=== PATIENT | male | born 1970 | race Caucasian/White ===

== ENCOUNTER 2018-12-30 18:15 | Inpatient (IN) ==
[2018-12-30] MEDS ORDERED: Acetaminophen 325 MG TABLET PO PRN (18:44)
[2018-12-30] MEDS ORDERED: Ondansetron ODT 4 MG TAB.RAPDIS SL PRN (18:50)
[2018-12-30] MEDS: valACYclovir 500 MG TABLET PO SCH (22:56)
[2018-12-30] MEDS: Gabapentin 300 MG CAPSULE PO SCH (22:56)
[2018-12-30] MEDS: Sennosides/Docusate Sodium TABLET PO SCH (23:00)
[2018-12-30] MEDS: *HR* OxyCODONE Immed Rel 5 MG TABLET PO PRN (23:19)
[2018-12-31] MEDS ORDERED: *HR* Enoxaparin 40 MG/0.4 ML SYRINGE SQ SCH (06:00)
[2018-12-31] MEDS: *HR* OxyCODONE Immed Rel 5 MG TABLET PO PRN ×2 (08:18→13:58)
[2018-12-31] MEDS: Sennosides/Docusate Sodium TABLET PO SCH ×2 (08:18→10:15)
[2018-12-31] MEDS: valACYclovir 500 MG TABLET PO SCH (08:21)
[2018-12-31] MEDS: Gabapentin 300 MG CAPSULE PO SCH (08:21)
[2018-12-31 08:41] VITALS: BP 117/75
--- NOTE | 2018-12-31 12:04 | Internal Med History&Physical ---
Date of Encounter: 12/31/18 Time of Encounter: 12:00 Assessment and Plan (1) Closed avulsion fracture of right hip Current visit: Yes Status: Acute Patient has experienced a avulsion fracture of the right hip when he fell down a flight of steps approximately 2 weeks ago. It was determined to take a nonsurgical route of treatment for his fracture. Patient was treated at an [facility] for this fracture and multiple other injuries and eventually discharged to our facility for further rehabilitation due to generalized weakness and poor pain control. Patient reportedly was unable to get out of bed while he was hospitalized at [facility] due to his pain issues. Patient was evaluated by occupational health during his stay here and currently was observed ambulating over 100 feet on his first therapy. Patient had made wishes to be di scharged, stating he does not feel he wants to be here. Physical therapy evaluation pending. Patient reportedly has been able to take a shower and perform his own ADLs without any difficulty. Possible discharge Qualifiers: Encounter type: subsequent encounter Fracture healing: with routine healing Qualified Code(s): S72.001D - Fracture of unspecified part of neck of right femur, subsequent encounter for closed fracture with routine healing (2) Damage to left ulnar nerve Current visit: Yes Status: Acute Patient continues to complain of paresthesia to the fourth and fifth digit of his left hand. Patient states that he had multiple bruises of the left elbow that occurred during his fall down a flight of steps and that his paresthesia began at that time. We will continue with current plan of care and medications. 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 Patient has been started on Valtrex while at [facility]. He states his nuchal rigidity has resolved and was able to demonstrate mostly pain-free range of motion of neck. Patient does state that he feels a little stiff to the lower posterior neck, but again no limits to range of motion was observed. Afebrile. We will continue patient on Valtrex, and if discharge we will continue this medication and have his primary care physician assumed care Internal Medicine - H&P: HPI Chief complaint: right hip avulsion Fx Admitted From: Hospital to Hospital Transfer Plans for Post Hospital Care: Home History of present illness: Mr. Baron is a 48 year old male , who was admitted to this facility from [facility] where he was treated for a right hip avulsion fracture after experiencing a fall down a flight of stairs. Also during that time patient was treated for herpes meningitis, which per medical records is his second time receiving treatment for this. Patient had multiple soft tissue injuries during his fall and per medical records had difficulty with pain control when attempting to [facility]. Patient reportedly was unpleased that he was transferred to this facility and has stated that he is requesting to be discharged to home within the next day or so, stating that he feels that he does not need in-house rehabilitation and also is concerned about finances. Patient currently states that he continues to have moderate pain to his back and right hip but is currently tolerable. Patient states that his pain increases during mobilization. He was evaluated by occupational health and patient was observed ambulating over 100 feet and was able to take a shower and perform his own ADLs. Physical therapy evaluation pending. Patient also noted to have no nuchal rigidity and demonstrated moving his head freely with no pain with range of motion. Patient also complains of continued paresthesia to his fourth and fifth digit of left hand and was diagnosed with ulnar nerve palsy. Past Med Surg Social Fam HX - Past Medical History Medical history: non-contributory Psychiatric history: anxiety - Past Surgical History Surgical History: non-contributory, other Additional surgical history: ear surgery as child - Social History Smoking Status: Never smoker Smokeless Tobacco Status: No Alcohol use: none Drug use: none Internal Medicine - H&P: Meds No Known Home Drugs 12/23/18 [History] Allergy/AdvReac Type Severity Reaction Status Date / Time No Known Allergies Allergy Verified 12/23/18 06:02 All Systems PM: A 10-system review of systems was performed and is negative for pertinent findings except as documented above in the HPI. - Constitutional Constitutional: as per HPI, no chills, no fever(s), no night sweats - EENT Eyes: as per HPI, no change in vision, no discharge, no pain, no photophobia Ears: as per HPI, no ear discharge, no ear pain, no tinnitus Nose, mouth and throat: as per HPI, no dysphagia, no nasal discharge, no neck pain, no sore throat - Breasts Breasts: as per HPI - Cardiovascular Cardiovascular ROS IM: as per HPI, no chest pain, no diaphoresis, no dyspnea, no lightheadedness, no palpitations, no syncope - Respiratory Respiratory: as per HPI, no cough, no dyspnea, no wheezing, no excessive phlegm production - Gastrointestinal Gastrointestinal: as per HPI, no abdominal pain, no diarrhea, no hematemesis, no hematochezia, no melena, no nausea, no vomiting - Genitourinary Genitourinary ROS male: as per HPI - Musculoskeletal Musculoskeletal ROS IM: as per HPI, no numbness, no tingling - Integumentary Integumentary IM: as per HPI, no rash, no unusual bruising - Neurological Neurological ROS: as per HPI, no confusion, no convulsions, no focal weakness, no numbness, no tingling, no tremor(s) - Hematologic/Lymphatic Hematologic/Lymphatic: no easy bruising - Constitutional Vitals: Temp Pulse Resp BP Pulse Ox 97.9 F 73 18 117/75 93 12/31/18 08:00 12/31/18 08:00 12/31/18 08:00 12/31/18 08:00 12/31/18 04:00 General appearance: Present: A&O X 3, pleasant - Head Head exam: Present: atraumatic, normocephalic - Eye Eye exam: Present: PERRL, conjuntiva pink, sclera anicteric Pupils: Present: PERRL - Neck Neck exam general surgery: Present: tenderness, supple, trachea midline. Absent: lymphadenopathy Additional comments: Patient complaints as slight tenderness to his lower neck area during range of motion and no limits to range of motion noted - Respiratory Respiratory exam: Present: CTAB. Absent: accessory muscle use, rales, rhonchi, wheezes - Cardiovascular Cardiovascular exam: Present: RRR, +S1, +S2. Absent: diastolic murmur, gallop, rubs, systolic murmur - GI/Abdominal GI/Abdominal exam: Present: normal bowel sounds, soft, no peritoneal signs. Absent: distended, tenderness - Extremities Exam Extremities exam: Present: warm, radial pulses palpable and symmetrical. Absent: calf tenderness, cyanotic, pedal edema Additional comments: Patient noted to have bruising to bilateral elbows. Slight tenderness to right hip during palpation but no limits to range of motion noted. Complaints of paresthesia to fourth and fifth digits of left hand - Neurological Exam Neurological exam: Present: CN II-XII intact, oriented X3, no focal deficits. Absent: pronater drift, facial droop, speech deficit - Skin Skin exam: Present: dry, intact
--- NOTE | 2018-12-31 13:51 | Discharge Summary ---
Date of Encounter: 12/31/18 Time of Encounter: 13:48 - Discharge Diagnosis (1) Closed avulsion fracture of right hip Priority: Primary Status: Acute Comments: Patient has experienced a fall down 5 steps resulting in a right hip avulsion fracture. Patient was evaluated and area hospital and a conservative treatment plan was devised. Patient has had issues with pain control that is limited his mobility, but today patient's pain has been better controlled and patient was able to ambulate greater than 100 feet for occupational therapy and physical therapy. Patient also was noted to be able to perform his own ADLs and was able to shower by himself. Patient is being discharged to home. Patient is refusing any further therapy through home health services. Patient is recommended to continue his follow-up with trauma clinic at [facility] and his PCP. Qualifiers: Encounter type: subsequent encounter Fracture healing: with routine healing Qualified Code(s): S72.001D - Fracture of unspecified part of neck of right femur, subsequent encounter for closed fracture with routine healing (2) Damage to left ulnar nerve Priority: Secondary Status: Acute Comments: Patient has experienced paresthesia to his left fourth and fifth digit, due to an injury to the ulnar nerve. No motor dysfunction noted. Patient experienced this injury during a fall down the stairs and was evaluated at [facility]. Nonsurgical treatment was recommended and patient is continue his follow-up with the trauma service. Patient is to follow-up with PCP Qualifiers: Encounter type: subsequent encounter Qualified Code(s): S54.02XD - Injury of ulnar nerve at forearm level, left arm, subsequent encounter (3) Herpesviral meningitis Priority: Secondary Status: Acute Comments: Patient was recently treated at [facility] for herpes meningitis. Patient reportedly has had treatment for this in the past. Patient was started on Valtrex which she continues today and will continue for a total of 14 days. Patient is recommended to follow-up with PCP. No neurological deficits noted. No nuchal rigidity. Hospital course: Mr. Baron is a 48 year old male , who was treated at [facility] for multiple injuries received during a fall down a flight of steps approximately 2 weeks ago. Patient had experienced a right hip avulsion fracture which was determined to have a nonsurgical treatment. Patient also experienced left ulnar nerve damage, with a residual of paresthesia to his fourth and fifth digit of left hand. This too was determined to be a nonsurgical treatment. Her involvement noted with that. Patient had complained of nuchal rigidity during that admission and was found to have herpes meningitis. Patient has had a remote history of herpes meningitis before in the past. He was started on Valtrex which she continues on today and will be given a prescription for 14 days. Patient was evaluated by both physical therapy and occupational therapy and was found to be able to ambulate greater than 100 feet without difficulty. Patient also was able to perform his own ADLs to include a shower on his own. Patient's pain control appears to be much better controlled. Patient is continue follow-up with, service at [facility] and his PCP after discharge. Discharge discussed with: patient Time spent discussing smoking cessation with patient: 3 to 10 minutes - Time Spent with Patient Total time spent providing and/or coordinating discharge services: Time spent: Less than 30 minutes - Discharge Medications Prescriptions: No Action No Known Home Drugs 1 each .ROUTE AD each Home Medications: No Known Home Drugs 12/23/18 [History] Allergies/Adverse Reactions: Allergy/AdvReac Type Severity Reaction Status Date / Time No Known Allergies Allergy Verified 12/23/18 06:02 Date of admission: 12/30/18 18:29 Primary care physician: Luis Mcarthur MD Consults: 12/30/18 18:44 Consult to Occupational Therapy [CONS] Routine Comment: tbi, meningitis Reason for Consult: tbi, meningitis Does patient have active BEDREST order?: No Is patient medically & hemodynamically stable?: Yes Patient assessed for mobility or mobilized this visit?: No Consult to Physical Therapy [CONS] Routine Comment: tbi, meningitis Reason for Consult: tbi, meningitis Does patient have active BEDREST order?: No Is patient medically & hemodynamically stable?: Yes Patient assessed for mobility or mobilized this visit?: No Consult to Recreational Therapy [CONS] Routine Comment: Consult to [employer] Truck [employer] [CONS] Routine Reason for SW Consult: pt wants to leave. Discharging clinician: Yanira Mercado - Constitutional Vitals: Temp Pulse Resp BP Pulse Ox 97.9 F 73 18 117/75 93 12/31/18 08:00 12/31/18 08:00 12/31/18 08:00 12/31/18 08:00 12/31/18 04:00 General appearance: Present: A&O X 3, pleasant Exam: Slight tenderness noted to base of neck but no limits to range of motion. No nuchal rigidity noted. - Head Head exam: Present: atraumatic, normocephalic - Eye Eye exam: Present: PERRL, conjuntiva pink, sclera anicteric Pupils: Present: PERRL - Neck Neck exam general surgery: Present: supple, trachea midline. Absent: lymphadenopathy - Respiratory Respiratory exam: Present: CTAB. Absent: accessory muscle use, rales, rhonchi, wheezes - Cardiovascular Cardiovascular exam: Present: RRR, +S1, +S2. Absent: diastolic murmur, gallop, rubs, systolic murmur - GI/Abdominal GI/Abdominal exam: Present: normal bowel sounds, soft, no peritoneal signs. Absent: distended, tenderness - Extremities Exam Extremities exam: Present: warm, radial pulses palpable and symmetrical. Absent: calf tenderness, cyanotic, pedal edema Additional comments: Patient with multiple bruises to bilateral arms. Complaints appears stated to the left hand fourth and fifth digit but no motor involvement noted. Right hip tenderness but no limits to range of motion. - Neurological Exam Neurological exam: Present: CN II-XII intact, oriented X3, no focal deficits. Absent: pronater drift, facial droop, speech deficit - Skin Skin exam: Present: dry, intact - Patient Status Disposition: Home, Self-Care Condition: Good Functional capacity at discharge: independent ambulation Overall status at discharge: patient is progressing back to baseline - Discharge Instructions Follow Up With: Luis Mcarthur MD [Primary Care Provider] - - Diet and Activity Activity: increase activity as tolerated Diet: advance to your usual diet
== END 2018-12-31 15:15 | disposition home or self-care (01) | DRG 559 ==
LOC: INPGRE 18:29